=== PATIENT | male | born 1975 | race Caucasian/White ===

== ENCOUNTER 2017-10-30 10:31 | Emergency (ER) | payer OTHER ==
[~2017-10-30] VITALS: Ht 177.8 cm; Wt 72.7 kg
[2017-10-30] MEDS ORDERED: METH10SO PO (10:50)
[2017-10-30] MEDS ORDERED: ALPR1TAB7 PO (10:50)
[2017-10-30] MEDS ORDERED: PARO10TA89 PO (10:50)
[2017-10-30 12:16] VITALS: BP 131/77
== END 2017-10-30 12:25 | disposition home or self-care (01) ==
LOC: EMS 10:32
DX: R07.89 Other chest pain (principal); F41.9 Anxiety disorder, unspecified; F11.90 Opioid use, unspecified, uncomplicated; Z87.891 Personal history of nicotine dependence
CPT/HCPCS: 93005; 99285

== ENCOUNTER 2022-10-05 03:33 | Emergency (ER) | payer OTHER ==
[~2022-10-05] VITALS: Ht 177.8 cm; Wt 72.7 kg
[~2022-10-05 03:33] MED LIST: ALPR-709 PO; METH10SO PO; PARO10TA89 PO
[2022-10-05] MEDS ORDERED: ETOMIDATE 2 MG/ML 10 ML VIAL IVP ONE (03:34)
[2022-10-05 03:48] VITALS: TEMP 98.4
[2022-10-05] MEDS ORDERED: SODIUM CHLORIDE 0.9% 1,000 ML IV ONE (06:15)
[2022-10-05] MEDS ORDERED: SODIUM CHLORIDE 0.9% 100 ML ONE (06:44)
[2022-10-05] MEDS ORDERED: IOHEXOL 350 MG/ML 100 ML VIAL ONE (06:44)
[2022-10-05 07:07] LABS: BASOPHILS % (AUTO) 0.1 % (0.0-2.0); EOSINOPHILS % (AUTO) 0 % (1.0-6.0); HEMATOCRIT 36.1 % (41-53); HEMOGLOBIN 11.9 g/dL (13.5-17.5); LYMPHOCYTES # (AUTO) 0.9 K/uL (1.0-4.8); LYMPHOCYTES % (AUTO) 6.8 % (22.0-44.0); MEAN CORPUSCULAR HEMOGLOBIN 29.9 pg (26.0-34.0); MEAN CORPUSCULAR HGB CONC 33.1 G/dL (31.0-37.0); MEAN CORPUSCULAR VOLUME 91 fL (80-100); MONOCYTES # (AUTO) 0.8 K/uL (0.1-1.0); MONOCYTES % (AUTO) 6.5 % (2.0-9.0); PLATELET COUNT (AUTO) 258 K/uL (150-450); RED BLOOD CELL COUNT(AUTO) 3.99 MIL/uL (4.50-5.90); RED CELL DISTRIBUTION WIDTH 15.4 % (11.5-14.5); WHITE BLOOD COUNT (AUTO) 12.7 K/uL (4.5-11.0)
[2022-10-05 07:09] LABS: ALCOHOL, BLOOD (SERUM) < 3 mg/dL (0-10); PROTHROMBIN TIME 10.3 SEC (9.4-11.6)
[2022-10-05 07:11] LABS: NEUTROPHILS % (AUTO) 86.6 % (40.0-70.0)
[2022-10-05 07:15] LABS: ALANINE AMINOTRANSFERASE 110 U/L (12-78); ALBUMIN 3.2 g/dL (3.4-5.0); ALKALINE PHOSPHATASE 98 U/L (46-116); ANION GAP 9 mmol/L (8-16); ASPARTATE AMINOTRANSFERASE 78 U/L (15-37); BILIRUBIN,TOTAL 0.2 mg/dL (0.1-1.0); CALCIUM, TOTAL 8.7 mg/dL (8.8-10.5); CARBON DIOXIDE 27 mmol/L (22-29); CHLORIDE 100 mmol/L (98-107); CREATININE 0.86 mg/dL (0.60-1.30); GLOMERULAR FILTR. RATE CALC > 60 mL/min (>60); GLUCOSE,RANDOM 156 mg/dL (70-110); POTASSIUM 3.9 mmol/L (3.5-5.1); SODIUM SERUM 136 mmol/L (136-145); TOTAL PROTEIN, SERUM 7.6 g/dL (6.4-8.2); UREA NITROGEN, BLOOD 19 mg/dL (7-18)
[2022-10-05 08:05] VITALS: PULSE 87; RESP 18; O2SAT 100
[2022-10-05] MEDS: PROPOFOL 1000 MG/ISO-OSM 100 ML IV PRN ×2 (08:36→10:35)
[2022-10-05 09:54] VITALS: PULSE 60; RESP 21; O2SAT 100
[2022-10-05 10:05] LABS: ABG BASE EXCESS 3.9 mmol/L (-2.0-3.0); ABG CARBOXYHEMOGLOBIN 0.4 % (0.0-1.5); ABG HCO3 27.2 mmol/L (22.0-26.0); ABG METHEMOGLOBIN 0.3 % (0.0-1.5); ABG OXYGEN CONTENT 18.9 mL/dL (15.0-23.0); ABG OXYGEN SATURATION 99.4 % (95.0-98.0); ABG OXYHEMOGLOBIN 98.7 % (94.0-100.0); ABG PCO2 50 mmHg (35-45); ABG PH 7.384 (7.35-7.450); ABG TOTAL HEMOGLOBIN 13.2 G/dL (12.0-18.0); PO2, ARTERIAL BG 256.3 mmHg (88.0-96.0); SOURCE, BLOOD GAS ARTERIAL
[2022-10-05 10:06] LABS: ABG A-A DIFF O2 117.5 mmHg (10-20.0); ALLEN TEST, BLOOD GAS Positive; O2 DEVICE,BLOOD GAS VENTILATOR (ROOM AIR); SITE, BLOOD GAS RT RADIAL; VT, ABG 420 ml
[2022-10-05 10:07] LABS: PEEP,BG 5 cm H2O; SPONTANEOUS VT, BG 418 ml
[2022-10-05 10:26] LABS: ALCOHOL, URINE DRUG SCREEN NEGATIVE (NEGATIVE); AMPHET/METH SCREEN,URINE POSITIVE (NEGATIVE); BARBITURATE SCREEN, URINE POSITIVE (NEGATIVE); BENZODIAZEPINES SCREEN,URINE NEGATIVE (NEGATIVE); CANNABINOID SCREEN,URINE NEGATIVE (NEGATIVE); COCAINE SCREEN,URINE NEGATIVE (NEGATIVE); METHADONE SCREEN, URINE POSITIVE (NEGATIVE); OPIATE SCREEN,URINE NEGATIVE (NEGATIVE); PHENCYCLIDINE SCREEN,URINE NEGATIVE (NEGATIVE)
[2022-10-05 10:35] VITALS: BP 124/69; PULSE 71
== END 2022-10-05 10:46 | disposition short-term general hospital (02) ==
LOC: EMS 03:33
DX: S06.5X0A Traumatic subdural hemorrhage without loss of consciousness, initial encounter (principal); F41.9 Anxiety disorder, unspecified; F11.90 Opioid use, unspecified, uncomplicated; Z87.891 Personal history of nicotine dependence; Y08.89XA Assault by other specified means, initial encounter; Y93.89 Activity, other specified; Y92.89 Other specified places as the place of occurrence of the external cause; Y99.8 Other external cause status
CPT/HCPCS: 99291; 94002; 70450; 31500; 96365; 71045; 96361; 80053; 85025; 85610; 85730; 36415; 82805; 36600; 70486; 72125; 70496; 70498; 93005; 80307; J3490; J2704; Q9967; J7030; J7050; G0480